=== PATIENT | male | born 1985 | race Caucasian/White ===

== ENCOUNTER 2020-03-10 13:17 | Outpatient (REF) | payer OTHER, SELFPAY | END 2020-03-10 13:18 | disposition home or self-care (01) | LOC: HO.LAB 13:17 | PROVIDERS: PCP Internal Medicine; Visit Provider Internal Medicine | DX: Z20.828 Contact with and (suspected) exposure to other viral communicable diseases (principal) | CPT/HCPCS: 36415; 87635 ==

== ENCOUNTER 2020-03-15 12:06 | Outpatient (REF) | payer OTHER, SELFPAY | END 2020-03-15 12:07 | disposition home or self-care (01) | LOC: HO.LAB 12:06 | PROVIDERS: PCP Internal Medicine; Visit Provider Internal Medicine | DX: Z20.828 Contact with and (suspected) exposure to other viral communicable diseases (principal) ==

== ENCOUNTER 2020-07-22 08:52 | Outpatient (REF) | payer OTHER, SELFPAY ==
[2020-07-22 09:23] LABS: MANUAL DIFF FLAG NO
[2020-07-22 09:27] LABS: Basophils Percent Auto 0.5 % (0-2); Eosinophils Absolute Auto 0.1 X10*3/uL (0.0-0.4); Eosinophils Percent Auto 0.9 % (0-4); Hematocrit 46.6 % (42-52); Hemoglobin 15.5 g/dl (14.0-18.0); Imm Gran Abs Auto 0.01 X10*3/uL (0.00-0.03); Imm Gran Pct Auto 0.2 % (0.0-0.4); Lymphocytes Percent Auto 15.7 % (20-40); Mean Corpuscular HGB Conc 33.3 g/dl (31.0-36.0); Mean Corpuscular Hemoglobin 29.1 pg (27.0-33.0); Mean Corpuscular Volume 87.4 fL (80-98); Mean Platelet Volume 9.8 fL (9.4-12.4); Monocytes Absolute Auto 0.5 X10*3/uL (0.1-1.2); Monocytes Percent Auto 8.3 % (2-11); Neutrophils Absolute Auto 4.8 X10*3/uL (2.0-8.3); Neutrophils Percent Auto 74.4 % (45-73); Platelet Count 252 X10*3/uL (160-400); Red Blood Count 5.33 X10*6/uL (4.60-5.80); White Blood Count 6.4 X10*3/uL (4.8-10.8)
[2020-07-22 09:47] LABS: Anion Gap 13 (12-20); Blood Urea Nitrogen 19 mg/dL (9-16); Calcium 9.7 mg/dL (8.4-10.2); Carbon Dioxide 30 mmol/L (22-29); Chloride 99 mmol/L (96-108); Estimated Glomerular Filt Rate > 60; Glucose Random 107 mg/dL (60-115); Potassium 3.2 mmol/L (3.3-5.1); Sodium 139 mmol/L (135-145)
== END 2020-07-22 08:53 | disposition home or self-care (01) ==
LOC: HO.LAB 08:52
PROVIDERS: Absent Provider Internal Medicine; PCP Internal Medicine; Visit Provider Nurse Practitioner Family
DX: R59.9 Enlarged lymph nodes, unspecified (principal); R22.1 Localized swelling, mass and lump, neck
CPT/HCPCS: 36415; 80048; 85025

== ENCOUNTER 2020-07-28 15:28 | Outpatient (REF) | payer OTHER, SELFPAY ==
--- NOTE | ~2020-07-28 | XR_ITS ---
EXAMINATION: XR LUMBOSACRAL SPINE WITH OBLIQUES CLINICAL INFORMATION: Lumbago with right-sided sciatica COMPARISON: None TECHNIQUE: AP, both oblique, and lateral views of the lumbar spine. Lateral view of the lumbosacral junction. FINDINGS: 5 nonrib-bearing lumbar type vertebral bodies. Mild L5-S1 facet arthropathy. No pars defect seen. Vertebral body and disc heights are maintained. Normal sagittal alignment. XR/XR lumbar spine 4V min IMPRESSION: Mild L5-S1 facet arthropathy. No acute osseous abnormality.
--- NOTE | ~2020-07-28 | US_ITS ---
EXAMINATION: US SOFT TISSUE OF THE NECK CLINICAL INFORMATION: Mass and lump left neck, right posterior cervical chain. COMPARISON: None TECHNIQUE: Linear transducer grayscale and color Doppler examination of the right and left neck level VB. FINDINGS: There are bilateral lower cervical lymph nodes. All lymph nodes appear slightly hypervascular. There are 2 level 5 the right cervical lymph nodes. There is a round lymph node that is slightly enlarged measuring 1.3 cm in dimension. This demonstrates normal hilar flow. There is an adjacent lymph node that measures 0.5 cm in transverse dimension and demonstrates loss of normal fatty hilum. This demonstrates normal hilar flow. There are 3 left level 5B lymph nodes. There is a 1.3 cm in transverse dimension lymph node that is slightly enlarged. This has normal ultrasound morphology and hilar flow. There is a 1.3 cm in transverse dimension slightly enlarged round lymph node. This demonstrates normal hilar flow. There is a 0.9 cm in transverse dimension round lymph node with no echogenic hilum and normal central hilar flow. US/US soft tiss head and/or neck IMPRESSION: Bilateral level 5B cervical lymphadenopathy. Larger lymph nodes are slightly enlarged and all lymph nodes appear somewhat hypervascular. Management should be determined on a clinical basis. Infectious, inflammatory and neoplastic processes should be considered. If lymph nodes persists, lymph nodes would be be amenable to ultrasound-guided fine-needle aspiration.
== END 2020-07-28 15:29 | disposition home or self-care (01) ==
LOC: HO.US 15:28
PROVIDERS: Absent Provider Internal Medicine; PCP Internal Medicine; Visit Provider Nurse Practitioner Family
DX: M54.41 Lumbago with sciatica, right side (principal); R59.9 Enlarged lymph nodes, unspecified
CPT/HCPCS: 72110; 76536

== ENCOUNTER 2020-07-30 11:59 | Emergency (ER) | payer OTHER, SELFPAY ==
--- NOTE | ~2020-07-30 | XR_ITS ---
EXAMINATION: XR CHEST CLINICAL INFORMATION: Shortness of breath COMPARISON: Previous chest x-ray February 2019 TECHNIQUE: Frontal view of the chest was obtained. FINDINGS: No significant abnormality is noted involving the heart, lungs, mediastinum, bony thorax or soft tissues. XR/XR chest 1V IMPRESSION: Unremarkable examination.
[2020-07-30 12:10] VITALS: BP 150/79; PULSE 68; RESP 18; TEMP 36.6; O2SAT 97; BMI 32.1
--- NOTE | 2020-07-30 12:24 | ECG_ITS ---
Test Reason : SOB Blood Pressure : / mmHG Vent. Rate : 065 BPM Atrial Rate : 065 BPM P-R Int : 150 ms QRS Dur : 108 ms QT Int : 412 ms P-R-T Axes : 035 032 012 degrees QTc Int : 428 ms Normal sinus rhythm Nonspecific T wave abnormality Abnormal ECG When compared with ECG of 02-MAR-2019 09:11, ST no longer elevated in Lateral leads Nonspecific T wave abnormality now evident in Lateral leads Referred By: Jhonatan Vargas Electronically Signed By:Minor Tillman
--- NOTE | 2020-07-30 12:25 | ED.SOB ---
HPI - SOB/Dyspnea General Chief Complaint: Dyspnea Stated Complaint: SOB Time Seen by Provider: 07/30/20 13:29 Source: patient Mode of arrival: ambulatory Limitations: language barrier (freelance interpreter/translator present for all interactions) History of Present Illness HPI Narrative: Primarily Mongolian-speaking 34-year-old male who reports history of hypertension shortness of breath since last night after taking new medication was prescribed for a rash. States several days ago he started having a allergic type rash to the upper torso and he saw his primary care doctor and was given hydroxyzine and prednisone the rash has resolved however feels like the medication is given shortness of breath. States at baseline he is very anxious unsure this is indeed do with her. He denies any chest pain, nausea vomiting diarrhea. No upper respiratory symptoms. No recent sick contacts. Onset (ago): day(s) Context: recent illness Timing: intermittent Severity: mild Exacerbating factors: nothing Relieving factors: nothing Treatment prior to arrival: none Related Data Previous Rx's Medication Instructions Recorded potassium chloride 10 meq PO DAILY #7 tab 07/30/20 Allergies Allergy/AdvReac Type Severity Reaction Status Date / Time No Known Allergies Allergy Unverified 02/25/20 19:25 [No Known Allergies*] Review of Systems Review of Systems: Constitutional: No Weight loss, No Fever, No Chills, No Night Sweats, No Fatigue, No Malaise ENT/Mouth: No Hearing loss, No Ear Pain, No Nasal Congestion, No Sinus Pain, No Hoarseness, No sore throat, No Rhinorrhea, No Swallowing Difficulty Eyes: No Eye Pain, No Swelling, No Redness, No Foreign Body, No Discharge, No Vision Changes Cardiovascular: No Chest Pain, + SOB, No Dyspnea on Exertion, No Orthopnea, No Edema, No Palpitations Respiratory: No Cough, No Sputum, No Wheezing, No Dyspnea Gastrointestinal: No Nausea, No Vomiting, No Diarrhea, No Constipation, No abdominal Pain, No Hematochezia, No Melena Genitourinary: No Dysuria, No Urinary Frequency, No Hematuria, No Urinary Incontinence, No Urgency, No Flank Pain, No Urinary Flow Changes, No Hesitancy Musculoskeletal: No joint pain, No Myalgias, No Joint Swelling Skin: No Skin Lesions, No rash Neuro: No Weakness, No Numbness, No Paresthesias, No Loss of Consciousness, No Dizziness, No Headache Psych: No Social Issues Heme/Lymph: No Bruising, No Bleeding,No Lymphadenopathy Endocrine: No Polyuria, No Polydipsia, No Temperature Intolerance Yes all other systems are reviewed and are negative [facility] Past Medical History Medical History (Updated 07/30/20 @ 17:36 by Jhonatan Vargas NP) Hypertension Social History Social History Alcohol intake: unknown Smoking Status: Unknown if ever smoked Use of substances other than those prescribed or required for medical reasons: No Any prior treatment program specific to substance use: No Advance Directives: No Advance Directives Information Provided: No Physical Exam Vital Signs: Vital Signs: Last Vital Signs Temp 97.7 F 07/30/20 16:42 Pulse 63 07/30/20 16:42 Resp 15 07/30/20 16:42 BP 132/76 07/30/20 16:42 Pulse Ox 98 07/30/20 16:42 Body Mass Index 32.1 Reviewed Const: General: cooperative and healthy appearing; No acute distress or intoxicated appearing Nutritional Appearance: average body habitus Orientation/consciousness: patient oriented x3 HENMT: Head: Yes normal to inspection Ears: hearing grossly normal bilaterally Eyes: General: appearance normal, both eyes and all related structures Visual Miller: normal visual miller by confrontation Neck: Neck: Yes normal visual inspection, No positive Brudzinski's sign, No positive Kernig's sign and No tender Thyroid: Thyroid normal Chest: Chest palpation & inspection: normal inspection of the chest Resp: Effort & Inspection: normal respiratory effort Auscultation: clear to auscultation bilaterally Cardio: Jugular venous distension: no JVD Rhythm: regular rhythm Heart sounds: S1 normal heart sound present and S2 normal heart sound present GI: Inspection: Yes normal to inspection Percussion: Yes normal to percussion Auscultation: normal bowel sounds : General: Yes no CVA tenderness Back/Spine/Pelvis: Back: no CVA tenderness Skin: General skin exam: no rashes or lesions noted Neuro: General: patient oriented x3 Extrem: General: Yes normal to inspection Course Course Course Narrative: Last mild hypokalemia this was repleted will discharge home with potassium otherwise overall stable. MDM - SOB/Dyspnea MDM Narrative Medical decision making narrative: Side effect from prednisone causing palpitation/dyspnea versus anxiety will check labs including D-dimer, chest x-ray, EKG and re-evaluate. Medical Records Attestation: I reviewed the patient's medical records. Lab Data Attestation: I reviewed the patient's lab results. Result diagrams: 07/30/20 12:54 07/30/20 16:07 Labs: Lab Results 07/30/20 07/30/20 07/30/20 Range/Units 12:54 12:54 12:54 WBC 6.7 (4.8-10.8) X10*3/uL RBC 5.17 (4.60-5.80) X10*6/uL Hgb 15.4 (14.0-18.0) g/dl Hct 44.1 (42-52) % MCV 85.3 (80-98) fL MCH 29.8 (27.0-33.0) pg MCHC 34.9 (31.0-36.0) g/dl RDW 12.8 (11.0-16.0) % Plt Count 210 (160-400) X10*3/uL MPV 10.0 (9.4-12.4) fL Immature Gran % (Auto) 0.3 (0.0-0.4) % Neut % (Auto) 67.1 (45-73) % Lymph % (Auto) 25.6 (20-40) % Valencia % (Auto) 6.0 (2-11) % Eos % (Auto) 0.7 (0-4) % Baso % (Auto) 0.3 (0-2) % Lymph # (Auto) 1.7 (1.2-4.9) X10*3/uL Valencia # (Auto) 0.4 (0.1-1.2) X10*3/uL Eos # (Auto) 0.1 (0.0-0.4) X10*3/uL Baso # (Auto) 0.0 (0.0-0.2) X10*3/uL Abs Immat Gran (auto) 0.02 (0.00-0.03) X10*3/uL Absolute Neuts (auto) 4.5 (2.0-8.3) X10*3/uL Absolute Nucleated RBC 0.000 (0.0-0.012) X10*3/uL Nucleated RBC % (auto) 0.0 (0.0-0.2) /100WBC D-Dimer NG/ML Sodium 139 (135-145) mmol/L Potassium 2.8 L (3.3-5.1) mmol/L Chloride 99 (96-108) mmol/L Carbon Dioxide 29 (22-29) mmol/L Anion Gap 14 (12-20) BUN 19 H (9-16) mg/dL Creatinine 0.92 (0.5-1.4) mg/dL Estim Creat Clear Calc 120.6 Estimated GFR > 60 Random Glucose 120 H (60-115) mg/dL Calcium 9.3 (8.4-10.2) mg/dL Total Bilirubin 0.5 (0.0-1.0) mg/dL AST 21 (5-37) U/L ALT 32 (0-40) U/L Alkaline Phosphatase 90 (39-117) U/L Troponin I High Sens 4.1 (<3.5-35.0) ng/L Total Protein 8.5 H (6.5-8.0) g/dL Albumin 4.6 (3.5-5.0) g/dL Urine Color Urine Appearance Urine pH (5.0-8.0) Ur Specific Mary Esther (1.005-1.025) Urine Protein (NEG-TRACE) MG/DL Urine Glucose (UA) (NEG) MG/DL Urine Ketones (NEG) MG/DL Urine Blood (NEG) Urine Nitrite (NEG) Ur Leukocyte Esterase (NEG) Urine RBC (0) /HPF Urine WBC (0-4) /HPF Ur Squamous Epith Cells /LPF Urine Bacteria /LPF Coronavirus (PCR) (Negative) Influenza Type A (PCR) (Negative) Influenza Type B (PCR) (Negative) RSV RNA Qual (PCR) (Negative) 07/30/20 07/30/20 07/30/20 Range/Units 12:54 12:55 12:55 WBC (4.8-10.8) X10*3/uL RBC (4.60-5.80) X10*6/uL Hgb (14.0-18.0) g/dl Hct (42-52) % MCV (80-98) fL MCH (27.0-33.0) pg MCHC (31.0-36.0) g/dl RDW (11.0-16.0) % Plt Count (160-400) X10*3/uL MPV (9.4-12.4) fL Immature Gran % (Auto) (0.0-0.4) % Neut % (Auto) (45-73) % Lymph % (Auto) (20-40) % Valencia % (Auto) (2-11) % Eos % (Auto) (0-4) % Baso % (Auto) (0-2) % Lymph # (Auto) (1.2-4.9) X10*3/uL Valencia # (Auto) (0.1-1.2) X10*3/uL Eos # (Auto) (0.0-0.4) X10*3/uL Baso # (Auto) (0.0-0.2) X10*3/uL Abs Immat Gran (auto) (0.00-0.03) X10*3/uL Absolute Neuts (auto) (2.0-8.3) X10*3/uL Absolute Nucleated RBC (0.0-0.012) X10*3/uL Nucleated RBC % (auto) (0.0-0.2) /100WBC D-Dimer < 200 NG/ML Sodium (135-145) mmol/L Potassium (3.3-5.1) mmol/L Chloride (96-108) mmol/L Carbon Dioxide (22-29) mmol/L Anion Gap (12-20) BUN (9-16) mg/dL Creatinine (0.5-1.4) mg/dL Estim Creat Clear Calc Estimated GFR Random Glucose (60-115) mg/dL Calcium (8.4-10.2) mg/dL Total Bilirubin (0.0-1.0) mg/dL AST (5-37) U/L ALT (0-40) U/L Alkaline Phosphatase (39-117) U/L Troponin I High Sens (<3.5-35.0) ng/L Total Protein (6.5-8.0) g/dL Albumin (3.5-5.0) g/dL Urine Color YELLOW Urine Appearance CLEAR Urine pH 6.0 (5.0-8.0) Ur Specific Mary Esther 1.020 (1.005-1.025) Urine Protein NEG (NEG-TRACE) MG/DL Urine Glucose (UA) NEG (NEG) MG/DL Urine Ketones NEG (NEG) MG/DL Urine Blood NEG (NEG) Urine Nitrite NEG (NEG) Ur Leukocyte Esterase NEG (NEG) Urine RBC 0 (0) /HPF Urine WBC 0 (0-4) /HPF Ur Squamous Epith Cells TRACE /LPF Urine Bacteria NONE /LPF Coronavirus (PCR) NEGATIVE (Negative) Influenza Type A (PCR) NEGATIVE (Negative) Influenza Type B (PCR) NEGATIVE (Negative) RSV RNA Qual (PCR) NEGATIVE (Negative) 07/30/20 07/30/20 Range/Units 16:07 16:07 WBC (4.8-10.8) X10*3/uL RBC (4.60-5.80) X10*6/uL Hgb (14.0-18.0) g/dl Hct (42-52) % MCV (80-98) fL MCH (27.0-33.0) pg MCHC (31.0-36.0) g/dl RDW (11.0-16.0) % Plt Count (160-400) X10*3/uL MPV (9.4-12.4) fL Immature Gran % (Auto) (0.0-0.4) % Neut % (Auto) (45-73) % Lymph % (Auto) (20-40) % Valencia % (Auto) (2-11) % Eos % (Auto) (0-4) % Baso % (Auto) (0-2) % Lymph # (Auto) (1.2-4.9) X10*3/uL Valencia # (Auto) (0.1-1.2) X10*3/uL Eos # (Auto) (0.0-0.4) X10*3/uL Baso # (Auto) (0.0-0.2) X10*3/uL Abs Immat Gran (auto) (0.00-0.03) X10*3/uL Absolute Neuts (auto) (2.0-8.3) X10*3/uL Absolute Nucleated RBC (0.0-0.012) X10*3/uL Nucleated RBC % (auto) (0.0-0.2) /100WBC D-Dimer NG/ML Sodium 138 (135-145) mmol/L Potassium 3.1 L (3.3-5.1) mmol/L Chloride 100 (96-108) mmol/L Carbon Dioxide 28 (22-29) mmol/L Anion Gap 13 (12-20) BUN 19 H (9-16) mg/dL Creatinine 0.85 (0.5-1.4) mg/dL Estim Creat Clear Calc 130.6 Estimated GFR > 60 Random Glucose 88 (60-115) mg/dL Calcium 8.6 D (8.4-10.2) mg/dL Total Bilirubin (0.0-1.0) mg/dL AST (5-37) U/L ALT (0-40) U/L Alkaline Phosphatase (39-117) U/L Troponin I High Sens < 3.5 (<3.5-35.0) ng/L Total Protein (6.5-8.0) g/dL Albumin (3.5-5.0) g/dL Urine Color Urine Appearance Urine pH (5.0-8.0) Ur Specific Mary Esther (1.005-1.025) Urine Protein (NEG-TRACE) MG/DL Urine Glucose (UA) (NEG) MG/DL Urine Ketones (NEG) MG/DL Urine Blood (NEG) Urine Nitrite (NEG) Ur Leukocyte Esterase (NEG) Urine RBC (0) /HPF Urine WBC (0-4) /HPF Ur Squamous Epith Cells /LPF Urine Bacteria /LPF Coronavirus (PCR) (Negative) Influenza Type A (PCR) (Negative) Influenza Type B (PCR) (Negative) RSV RNA Qual (PCR) (Negative) Imaging Data Chest x-ray: Radiologist's impression: Normal sinus rhythm Nonspecific T wave abnormality Abnormal ECG When compared with ECG of 02-MAR-2019 09:11, ST no longer elevated in Lateral leads Nonspecific T wave abnormality now evident in Lateral leads Discharge Plan Discharge Clinical Impression: Acute dyspnea, Acute hypokalemia Patient Disposition: Home, Self-Care Instructions: Hypokalemia (ED), Shortness of Breath (ED) Additional Instructions: Balanced diet Take medication as prescribed Your blood work was overall reassuring with the exception of your low potassium level which was given Take potassium supplement as prescribed Follow-up as instructed Otherwise your blood work was overall stable including blood work for your heart, EKG chest x-ray and negative COVID test Stop taking the prednisone and hydroxyzine Follow with her primary care doctor next 7 days Thank you Prescriptions: New potassium chloride 10 mEq tablet extended release 10 meq PO DAILY Qty: 7 RF: 0 Referrals: Debra London MD [Primary Care Provider] - 3 days
[2020-07-30 13:02] LABS: Glucose Urine UA NEG (NEG); Leukocyte Esterase Urine NEG (NEG); Nitrite Urine NEG (NEG); Urine Blood NEG (NEG); Urine Ketones NEG (NEG); Urine Protein NEG (NEG-TRACE)
[2020-07-30 13:02] LABS: MANUAL DIFF FLAG NO
[2020-07-30 13:03] LABS: Appearance Urine CLEAR; Color Urine YELLOW
[2020-07-30 13:03] LABS: Basophils Percent Auto 0.3 % (0-2); Eosinophils Absolute Auto 0.1 X10*3/uL (0.0-0.4); Eosinophils Percent Auto 0.7 % (0-4); Hematocrit 44.1 % (42-52); Hemoglobin 15.4 g/dl (14.0-18.0); Imm Gran Abs Auto 0.02 X10*3/uL (0.00-0.03); Imm Gran Pct Auto 0.3 % (0.0-0.4); Lymphocytes Absolute Auto 1.7 X10*3/uL (1.2-4.9); Lymphocytes Percent Auto 25.6 % (20-40); Mean Corpuscular HGB Conc 34.9 g/dl (31.0-36.0); Mean Corpuscular Hemoglobin 29.8 pg (27.0-33.0); Mean Corpuscular Volume 85.3 fL (80-98); Monocytes Absolute Auto 0.4 X10*3/uL (0.1-1.2); Neutrophils Absolute Auto 4.5 X10*3/uL (2.0-8.3); Neutrophils Percent Auto 67.1 % (45-73); Platelet Count 210 X10*3/uL (160-400); Red Blood Count 5.17 X10*6/uL (4.60-5.80); Red Cell Distribution Width 12.8 % (11.0-16.0); White Blood Count 6.7 X10*3/uL (4.8-10.8)
[2020-07-30 13:11] LABS: RBC Urine 0 /HPF (0); Squamous Epithelial Cell Urine TRACE /LPF; WBC Urine 0 /HPF (0-4)
[2020-07-30 13:13] LABS: D Dimer < 200 NG/ML
[2020-07-30 13:30] LABS: Alanine Aminotransferase 32 U/L (0-40); Albumin Level 4.6 g/dL (3.5-5.0); Alkaline Phosphatase 90 U/L (39-117); Anion Gap 14 (12-20); Aspartate Amino Transferase 21 U/L (5-37); Bilirubin Total 0.5 mg/dL (0.0-1.0); Blood Urea Nitrogen 19 mg/dL (9-16); Calcium 9.3 mg/dL (8.4-10.2); Carbon Dioxide 29 mmol/L (22-29); Chloride 99 mmol/L (96-108); Creatinine Clr Calc Pharmacy 120.6; Estimated Glomerular Filt Rate > 60; Glucose Random 120 mg/dL (60-115); Potassium 2.8 mmol/L (3.3-5.1); Sodium 139 mmol/L (135-145); Total Protein 8.5 g/dL (6.5-8.0)
[2020-07-30 13:36] LABS: Troponin-I High Sensitivity 4.1 ng/L (<3.5-35.0)
[2020-07-30 13:56] VITALS: BP 137/78; PULSE 61; RESP 18; O2SAT 98
[2020-07-30 13:56] LABS: Influenza A PCR NEGATIVE (Negative); Influenza B PCR NEGATIVE (Negative); Resp Syncy Virus RNA Qual PCR NEGATIVE (Negative); SARS COV2 PCR INHOUSE NEGATIVE (Negative)
[2020-07-30] MEDS: Potassium Chloride ER 20 MEQ TAB.ER.PRT 60 MEQ PO (14:46)
[2020-07-30] MEDS: 0.9 % Sodium Chloride 1,000 ML 999 ML IV (14:46)
[2020-07-30] MEDS: Potassium Chloride/H20 10 MEQ/100 ML PIGGYBACK 100 MEQ IV (14:46)
[2020-07-30 16:42] VITALS: BP 132/76; PULSE 63; RESP 15; TEMP 36.5; O2SAT 98
[2020-07-30 16:42] LABS: Anion Gap 13 (12-20); Blood Urea Nitrogen 19 mg/dL (9-16); Calcium 8.6 mg/dL (8.4-10.2); Carbon Dioxide 28 mmol/L (22-29); Chloride 100 mmol/L (96-108); Creatinine Clr Calc Pharmacy 130.6; Estimated Glomerular Filt Rate > 60; Glucose Random 88 mg/dL (60-115); Potassium 3.1 mmol/L (3.3-5.1); Sodium 138 mmol/L (135-145)
[2020-07-30 16:48] LABS: Troponin-I High Sensitivity < 3.5 ng/L (<3.5-35.0)
== END 2020-07-30 18:04 | disposition home or self-care (01) ==
PROVIDERS: Nurse Practitioner Primary Care; Emergency Provider Internal Medicine; PCP Internal Medicine
DX: R06.00 Dyspnea, unspecified (principal); E87.6 Hypokalemia; I10 Essential (primary) hypertension; Z20.822 Contact with and (suspected) exposure to COVID-19
CPT/HCPCS: 0241U; 36415; 71045; 80048; 80053; 81001; 84484; 85025; 85379; 93005; 96365; 99284

== ENCOUNTER 2020-08-29 10:52 | Outpatient (REF) | payer OTHER, SELFPAY ==
[2020-08-29 12:33] LABS: Blood Urea Nitrogen 20 mg/dL (9-16); Estimated Glomerular Filt Rate > 60
== END 2020-08-29 10:53 | disposition home or self-care (01) ==
LOC: HO.LAB 10:52
PROVIDERS: PCP Internal Medicine; Visit Provider Surgery
DX: R59.0 Localized enlarged lymph nodes (principal)
CPT/HCPCS: 36415; 82565; 84520

== ENCOUNTER 2020-11-09 15:26 | Outpatient (REF) | payer OTHER, SELFPAY ==
[2020-11-09 17:24] LABS: Blood Urea Nitrogen 19 mg/dL (9-16); Estimated Glomerular Filt Rate > 60
== END 2020-11-09 15:27 | disposition home or self-care (01) ==
LOC: HO.LAB 15:26
PROVIDERS: PCP Internal Medicine; Visit Provider Surgery
DX: R59.0 Localized enlarged lymph nodes (principal)
CPT/HCPCS: 36415; 82565; 84520

== ENCOUNTER 2020-11-10 14:03 | Outpatient (REF) | payer OTHER, SELFPAY ==
--- NOTE | ~2020-11-10 | CT_ITS ---
EXAMINATION: CT SOFT TISSUE NECK WITH CONTRAST CLINICAL INFORMATION: 34-year-old with localized enlarged lymph nodes. COMPARISON: None TECHNIQUE: Following the intravenous administration of 60 mL of Omnipaque 350 intravenous contrast, helical imaging was performed in the axial plane with generation of coronal and sagittal reformatted images. This CT examination was performed using dose optimization techniques as appropriate, variously including the following: *Automated exposure control *Adjustment of mA and/or kV according to patient size (this includes techniques or standardized protocols for targeted exams where dose is matched to indication/reason for exam; i.e. extremities or head) *Use of iterative reconstruction technique DLP: 777.84 mGy-cm FINDINGS: SKULL BASE: The bony skull base appears grossly intact. The visualized intracranial structures are grossly unremarkable in appearance within the limitations of the exam. The mastoids and middle ear cavities are unopacified. There is a probable cerumen plug in the left EAC. There is mild mucosal thickening in the left frontal recess. Otherwise the visualized paranasal sinuses are unopacified and there is nasal septal deviation to the right anteriorly. SUPRAHYOID NECK: The nasopharynx, land sales agent and parapharyngeal spaces appear within normal limits. There are prominent pharyngeal tonsils bilaterally, likely reactive. Bilaterally, segmentally calcified stylohyoid processes are noted at the level of the pharyngeal tonsils. The oral cavity, lingual and buccal spaces are partially obscured by metallic dental amalgam artifact. The base of the tongue and floor of the mouth structures appear within normal limits. The major salivary glands are normal in morphology and attenuation. There are nonenlarged bilateral submandibular space lymph nodes. There are mildly prominent submental space lymph nodes, with one of these measuring 16 x 9 mm greatest transverse dimensions which is enlarged for this space. There are multiple small, nonenlarged left suprahyoid IJ chain lymph nodes. Additionally, there is a mildly prominent right suprahyoid IJ chain lymph node measuring 2.2 x 1.0 cm greatest maximum dimensions in axial plane. The findings are consistent with mild lymphadenopathy. No cystic or necrotic-appearing lymph nodes are identified. INFRAHYOID NECK: The epiglottis, larynx, hypopharynx and thyroid gland appear within normal limits. Scattered very small level III lymph nodes are noted bilaterally. There is a slightly prominent level Va lymph node on the right. Other small, normal-sized level Va lymph nodes are noted bilaterally. Small nonenlarged level Vb lymph nodes are noted. UPPER CHEST: No retroclavicular lymphadenopathy is identified. Visualized mediastinum is unremarkable. Visualized lung parenchyma is within normal limits. SKELETAL: Skeletal structures are intact. OTHER COMMENTS: None. CT/CT soft tissue neck w con IMPRESSION: 1. Findings are consistent with cervical lymphadenopathy as described above bilaterally, which is a nonspecific finding. No cystic or necrotic nodes are seen and there is no primary mass lesion identified. Differential diagnostic considerations include both inflammatory/infectious and neoplastic etiologies. Follow-up as per clinical indications. 2. Probable cerumen plug in the left EAC.
[2020-11-10] MEDS: iohexoL 350 MG/ML 100 ML INFUS..BTL IV (15:08)
== END 2020-11-10 14:04 | disposition home or self-care (01) ==
LOC: HO.CT 14:03
PROVIDERS: PCP Internal Medicine Geriatric Medicine; Visit Provider Surgery
DX: R59.0 Localized enlarged lymph nodes (principal)
CPT/HCPCS: 70491; Q9967

== ENCOUNTER → 2020-11-17 15:22 | Outpatient (BNVA) | payer OTHER, SELFPAY | PROVIDERS: PCP Internal Medicine; Visit Provider Surgery | DX: R59.0 Localized enlarged lymph nodes (principal) | CPT/HCPCS: 99212 ==

== ENCOUNTER 2021-03-17 00:41 | Emergency (ER) | payer OTHER, SELFPAY ==
--- NOTE | ~2021-03-17 | XR_ITS ---
EXAMINATION: XR CHEST CLINICAL INFORMATION: Palpitations. Chest discomfort. COMPARISON: 07/30/2020 TECHNIQUE: Frontal view of the chest was obtained. FINDINGS: The lungs are well expanded. There is no focal consolidation, edema, or effusion. No pneumothorax. The cardiomediastinal silhouette is within normal limits. No acute osseous abnormality. XR/XR chest 1V IMPRESSION: Clear lungs.
[2021-03-17 00:45] VITALS: BP 145/89; PULSE 74; RESP 16; TEMP 36.8; O2SAT 97; BMI 30.2
--- NOTE | 2021-03-17 00:50 | ECG_ITS ---
Test Reason : PALPITATIONS Blood Pressure : / mmHG Vent. Rate : 070 BPM Atrial Rate : 070 BPM P-R Int : 148 ms QRS Dur : 116 ms QT Int : 408 ms P-R-T Axes : 041 045 018 degrees QTc Int : 440 ms Normal sinus rhythm Left ventricular hypertrophy with QRS widening Abnormal ECG When compared with ECG of 30-JUL-2020 12:39, Nonspecific T wave abnormality no longer evident in Lateral leads No significant changes seen Referred By: Generic ED Physician Electronically Signed By:JONATHAN STEVENSON MD
[2021-03-17 02:03] VITALS: BP 117/56; PULSE 60; RESP 16; O2SAT 98
[2021-03-17 02:09] LABS: MANUAL DIFF FLAG NO
[2021-03-17 02:11] LABS: Basophils Absolute Auto 0.1 X10*3/uL (0.0-0.2); Basophils Percent Auto 0.4 % (0-2); Eosinophils Absolute Auto 0.1 X10*3/uL (0.0-0.4); Eosinophils Percent Auto 0.9 % (0-4); Hematocrit 42.6 % (42-52); Hemoglobin 15.2 g/dl (14.0-18.0); Imm Gran Abs Auto 0.04 X10*3/uL (0.00-0.03); Imm Gran Pct Auto 0.3 % (0.0-0.4); Lymphocytes Absolute Auto 2.2 X10*3/uL (1.2-4.9); Lymphocytes Percent Auto 15.8 % (20-40); Mean Corpuscular HGB Conc 35.7 g/dl (31.0-36.0); Mean Corpuscular Hemoglobin 30.8 pg (27.0-33.0); Mean Corpuscular Volume 86.2 fL (80-98); Mean Platelet Volume 9.5 fL (9.4-12.4); Monocytes Absolute Auto 0.7 X10*3/uL (0.1-1.2); Monocytes Percent Auto 5.2 % (2-11); Neutrophils Absolute Auto 10.6 X10*3/uL (2.0-8.3); Neutrophils Percent Auto 77.4 % (45-73); Platelet Count 277 X10*3/uL (160-400); Red Blood Count 4.94 X10*6/uL (4.60-5.80); Red Cell Distribution Width 12.5 % (11.0-16.0); White Blood Count 13.7 X10*3/uL (4.8-10.8)
[2021-03-17 02:24] LABS: Anion Gap 15 (12-20); Blood Urea Nitrogen 20 mg/dL (9-16); Calcium 9.8 mg/dL (8.4-10.2); Carbon Dioxide 26 mmol/L (22-29); Chloride 100 mmol/L (96-108); Creatinine Clr Calc Pharmacy 120.1; Estimated Glomerular Filt Rate > 60; Glucose Random 110 mg/dL (60-115); Sodium 138 mmol/L (135-145)
[2021-03-17 02:29] LABS: Troponin-I High Sensitivity < 3.5 ng/L (<3.5-35.0)
[2021-03-17] MEDS: LORazepam 2 MG/ML VIAL 1 MG IVPUSH (02:32)
--- NOTE | 2021-03-17 02:44 | ED_ITS ---
HPI - Arrhythmia/Palpitations General Chief Complaint: Arrhythmia/Palpitations Stated Complaint: Chest pain Time Seen by Provider: 03/17/21 01:41 Source: patient Mode of arrival: ambulatory Limitations: no limitations History of Present Illness HPI narrative: 35-year-old male who presents emergency department for evaluation of palpitations, headache, nausea, numbness of his hands and arms. Patient states that he was in bed, approximately 1 hour prior to coming to the emergency department, when he had a sudden onset of palpitations. He states he felt his heart would stop and then beat again. He states this continued multiple times in a row. He states that he felt lightheaded and dizzy. He states that he developed a headache which is now resolved. He had nausea but no vomiting. He states the did feel short of breath and his hands became numb. He states the numbness spread up his arms. He denied any facial numbness. Patient states that he has had similar symptoms in the past. He states that he has been under increased stress and has been depressed ever since his partner left him 6 months ago. He denied fever, chills, cough, abdominal pain, diarrhea, myalgias, arthralgias, frequency, urgency or dysuria. Related Data Home Medications Medication Instructions Recorded Confirmed chlorthalidone 25 mg tablet 25 mg PO DAILY 08/29/20 11/17/20 cyclobenzaprine 10 mg tablet 10 mg PO TID 08/29/20 11/17/20 nabumetone 750 mg tablet 750 mg PO BID 08/29/20 11/17/20 naproxen sodium 220 mg tablet [id number] mg PO Q12H PRN 08/29/20 11/17/20 Previous Rx's Medication Instructions Recorded potassium chloride 10 mEq 10 meq PO DAILY #7 tab 07/30/20 tablet,extended release Allergies Allergy/AdvReac Type Severity Reaction Status Date / Time No Known Allergies Allergy Verified 03/17/21 00:44 [No Known Allergies*] Review of Systems Review of Systems: Yes all other systems are reviewed and are negative [facility] Past Medical History [facility] Narrative: Past medical history hypertension, anxiety. Surgical history: Appendectomy. Social history: The patient denies tobacco, alcohol and drug use. Medical History Cervical lymphadenopathy Hypertension Surgical History History of appendectomy Family History Family History Paternal Grandmother Stomach cancer Social History Social History Alcohol intake: current Alcohol intake frequency: holidays/special occasions only Advance Directives: No Advance Directives Information Provided: No Physical Exam Vital Signs: Vital Signs: Last Vital Signs Temp 98.2 F 03/17/21 00:45 Pulse 60 03/17/21 02:03 Resp 16 03/17/21 02:03 BP 117/56 L 03/17/21 02:03 Pulse Ox 98 03/17/21 02:03 Body Mass Index 30.2 Const: General: cooperative and no acute distress Orientation/cons ciousness: oriented to person and oriented to place Limitations: no limitations HENMT: Head: Yes normal to inspection, Yes normocephalic and Yes atraumatic Ears: external ears normal General nose exam: Normal external nose present Face and sinus: Yes normal facial exam Mouth: Normal oral and palatal mucosa present Throat: Yes posterior oropharynx normal Eyes: General: appearance normal, both eyes and all related structures Pupils: Equal, round and reactive pupils present Neck: Neck: Yes normal visual inspection, Yes no lymphadenopathy, Yes trachea midline and Yes supple Chest: Chest palpation & inspection: normal inspection of the chest and normal palpation of entire chest wall Resp: Effort & Inspection: normal respiratory effort and able to speak in complete sentences Auscultation: clear to auscultation bilaterally Cardio: Rate: regular rate Rhythm: regular rhythm Heart sounds: S1 normal heart sound present, S2 normal heart sound present and no murmurs GI: Inspection: Yes normal to inspection Palpation (GI): Soft to palpation, nontender and no guarding Auscultation: normal bowel sounds : General: Yes no CVA tenderness Back/Spine/Pelvis: Back: no CVA tenderness Skin: General skin exam: no rashes or lesions noted Neuro: General: oriented to person and oriented to place Cranial nerves: Yes CN's II-XII intact bilaterally and Yes Equal, round and reactive pupils present Cognition (Neuro): normal cognition Motor exam (neuro): 5/5 motor strength present throughout Extrem: General: Yes normal to inspection Psych: Appearance: grossly normal Speech and movement: Normal speech and movement present Affect: normal affect Attitude: cooperative Thought process: Normal thought process present Thought content: Normal thought julian nt present Course Course Course Narrative: 35-year-old male who presents emergency department for evaluation of palpitations, headache, nausea, shortness of breath and numbness of his upper extremities. Patient's symptoms began while he was in bed approximately 1 hour prior to coming to the emergency department. He has had similar symptoms in the past. He states that he has been under increased stress since his partner left him 6 months ago. Patient's vital signs were unremarkable. Physical exam was normal. [place] [address]. CMP revealed a low potassium 3.0 and high BUN of 20. Troponin was below detectable limits. Chest x-ray no significant abnormalities. Twelve EKG was unremarkable. The patient's presentation is consistent with acute anxiety/hyperventilation syndrome. The patient was treated with Ativan 1 mg IV. 0337: Patient is feeling significantly better. The patient will be discharged home. MDM - Arrhythmia/Palpitations Lab Data Result diagrams: 03/17/21 02:01 03/17/21 02:01 Labs: Lab Results 03/17/21 03/17/21 03/17/21 Range/Units 02:01 02:01 02:01 WBC 13.7 H (4.8-10.8) X10*3/uL RBC 4.94 (4.60-5.80) X10*6/uL Hgb 15.2 (14.0-18.0) g/dl Hct 42.6 (42-52) % MCV 86.2 (80-98) fL MCH 30.8 (27.0-33.0) pg MCHC 35.7 (31.0-36.0) g/dl RDW 12.5 (11.0-16.0) % Plt Count 277 D (160-400) X10*3/uL MPV 9.5 (9.4-12.4) fL Immature Gran % (Auto) 0.3 (0.0-0.4) % Neut % (Auto) 77.4 H (45-73) % Lymph % (Auto) 15.8 L (20-40) % [place] % (Auto) 5.2 (2-11) % Eos % (Auto) 0.9 (0-4) % Baso % (Auto) 0.4 (0-2) % Lymph # (Auto) 2.2 (1.2-4.9) X10*3/uL [place] # (Auto) 0.7 (0.1-1.2) X10*3/uL Eos # (Auto) 0.1 (0.0-0.4) X10*3/uL Baso # (Auto) 0.1 (0.0-0.2) X10*3/uL Abs Immat Gran (auto) 0.04 H (0.00-0.03) X10*3/uL Absolute Neuts (auto) 10.6 H (2.0-8.3) X10*3/uL Absolute Nucleated RBC 0.000 (0.0-0.012) X10*3/uL Nucleated RBC % (auto) 0.0 (0.0-0.2) /100WBC Sodium 138 (135-145) mmol/L Potassium 3.0 L (3.3-5.1) mmol/L Chloride 100 (96-108) mmol/L Carbon Dioxide 26 (22-29) mmol/L Anion Gap 15 (12-20) BUN 20 H (9-16) mg/dL Creatinine 0.86 (0.5-1.4) mg/dL Estim Creat Clear Calc 120.1 Estimated GFR > 60 Random Glucose 110 (60-115) mg/dL Calcium 9.8 D (8.4-10.2) mg/dL Troponin I High Sens < 3.5 (<3.5-35.0) ng/L ECG Data Interpretation: 0215: Normal sinus rhythm rate of 70, normal MO interval, QRS duration and QTC interval, inverted T-wave in lead 3. No ST segment elevation. No ST segment depression. No PACs, no PVCs. Discharge Plan Discharge Clinical Impression: Acute hyperventilation syndrome, Palpitations, Anxiety Patient Disposition: Home, Self-Care Instructions: Hyperventilation (ED), Heart Palpitations (ED) Additional Instructions: Your blood work was normal. Your symptoms are caused by stress and anxiety, this caused you to get short of breath , caused your heart to skipped beats and cause the numbness in your hands . We gave you Ativan 1 mg IV which took your symptoms away. You should talk to your doctor about getting on medications for stress and anxiety. Follow-up with your doctor in 2 days. Please return to the emergency department if your symptoms get worse or if you develop any symptoms that are concerning to you. Prescriptions: No Action potassium chloride 10 mEq tablet extended release 10 meq PO DAILY Qty: 7 RF: 0 nabumetone 750 mg tablet 750 mg PO BID RF: 0 chlorthalidone 25 mg tablet 25 mg PO DAILY RF: 0 cyclobenzaprine 10 mg tablet 10 mg PO TID RF: 0 naproxen sodium 220 mg tablet [id number] mg PO Q12H PRNRF: 0 Print Language: Citizen Of [place]
[2021-03-17 03:36] VITALS: BP 124/68; PULSE 69; RESP 16; O2SAT 97
--- NOTE | 2021-03-17 03:37 | PC.NURSE ---
pt states with clinical staff anesthesiologist that the numbness in his hand has resolved as well as the heart palp. pt feels ready for discharge when he has a ride. home.
== END 2021-03-17 03:42 | disposition home or self-care (01) ==
PROVIDERS: Emergency Provider Emergency Medicine Emergency Medical Services; PCP Internal Medicine
DX: F45.8 Other somatoform disorders (principal); R00.2 Palpitations; F41.9 Anxiety disorder, unspecified; I10 Essential (primary) hypertension
CPT/HCPCS: 36415; 71045; 80048; 84484; 85025; 93005; 96374; 99284; J2060

== ENCOUNTER 2021-08-29 06:45 | Emergency (ER) | payer OTHER, SELFPAY ==
[2021-08-29 08:51] VITALS: BP 136/75; PULSE 62; RESP 16; TEMP 36.9; O2SAT 97; BMI 29.8
== END 2021-08-29 13:44 | disposition left against medical advice (07) ==
PROVIDERS: Emergency Provider Emergency Medicine; PCP Internal Medicine
DX: R51.9 Headache, unspecified (principal); I10 Essential (primary) hypertension
CPT/HCPCS: 99281; 99282

== ENCOUNTER 2021-12-26 18:53 | Outpatient (REF) | payer OTHER, SELFPAY ==
--- NOTE | ~2021-12-26 | MR_ITS ---
EXAMINATION: MR LUMBAR SPINE WITHOUT CONTRAST CLINICAL INFORMATION: 36-year-old with right sciatica. Self-reported low back pain with bilateral hip and leg pain. COMPARISON: None TECHNIQUE: MRI of the lumbar spine was obtained using routine sequences without contrast. FINDINGS: Coronal Alignment: Slight lower lumbar dextrocurvature noted on the supervisor toy assembly view which is nonspecific and could be positional or related to muscle spasm. Sagittal Alignment: The lumbosacral spine is anatomically aligned in the sagittal plane. No spondylolisthesis or spondylolysis. Lumbosacral Junction: Normal. Five [id number] lumbar-type vertebral bodies. Vertebral Bodies: Normal height. Disc Spaces and Endplates: Moderate disc space height loss at L5-S1 with central Schmorl's nodes and disc desiccation noted with minor endplate spurring. Remaining lumbar intervertebral discs demonstrate normal height and signal with no significant spondylosis. Spinal Canal: No abnormal developmental findings. Bone Marrow: No suspicious marrow-replacing process or bone marrow edema. Type II degenerative marrow signal changes noted along the endplates at L5-S1. Conus Medullaris: Terminates at L1. Morphology and signal is normal. Intradural Nerve Roots: Within normal limits. L5-S1: Broad-based central to right subarticular disc herniation noted, with right S1 nerve root impingement and posterior displacement and to a lesser degree left S1 nerve root impingement with effacement of the subarticular zones bilaterally, right more than left and flattening of the dural sac on the right with associated moderate central spinal canal stenosis. No significant facet arthropathy noted. There is a small right foraminal disc protrusion without neural impingement, with mild right-sided foraminal narrowing. The remaining lumbar levels demonstrate normal disc contours with no significant disc bulge or herniation. There is [id number] facet hypertrophic change left more than right at L4-L5. No significant canal or neuroforaminal stenosis seen throughout the remainder of the lumbar spine. Paraspinal/Retroperitoneal: The paravertebral soft tissues appear unremarkable. A few tiny simple-appearing cysts are seen in the right kidney. Limited evaluation.?No specific follow up recommended based on the current ACR Best Practice Guidelines. MR/MR lumbar spine wo con IMPRESSION: 1. Discogenic degenerative changes at L5-S1 as discussed above, with the broad-based central to right subarticular disc herniation with impingement on the S1 nerve roots, right more than left, thecal sac encroachment, bilateral subarticular recess and central spinal canal stenosis as detailed above. A small right foraminal disc protrusion is also noted at this level with mild right-sided neural foraminal narrowing without neural impingement. 2. [id number] facet hypertrophic changes at L4-L5. 3. Otherwise unremarkable exam.
== END 2021-12-26 18:54 | disposition home or self-care (01) ==
LOC: HO.MRI 18:53
PROVIDERS: Visit Provider Emergency Medicine
DX: M54.41 Lumbago with sciatica, right side (principal)
CPT/HCPCS: 72148